=== PATIENT | male | born 1990 | race Caucasian/White ===

== ENCOUNTER 2021-02-22 11:47 | Emergency (ER) | payer OTHER, SELFPAY ==
[2021-02-22 12:10] VITALS: BP 129/87; PULSE 75; RESP 16; TEMP 36.2; O2SAT 99
--- NOTE | 2021-02-22 12:42 | ED.URI ---
HPI - URI/Sore Throat General Chief Complaint: Upper Respiratory Infection Stated Complaint: sore throat/ear pain Time Seen by Provider: 02/22/21 12:42 Source: patient Mode of arrival: ambulatory Limitations: no limitations History of Present Illness HPI Narrative: Hermes Barkley is a 30 yo male with no PMH comes to [facility] with complaints of sore throat and fever has been taking DayQuil and NyQuil -child was seen by bath tester and diagnosed with cold they were both strep and Covid negative Related Data Allergies Allergy/AdvReac Type Severity Reaction Status Date / Time codeine Allergy Unknown Fainting Verified 02/22/21 12:26 Review of Systems Review of Systems: CONSTITUTIONAL: Has fever, chills, sweats. EYES: Denies visual changes, redness, discharge. ENT: Denies rhinorrhea, congestion, has sore throat, otalgia. CARDIOVASCULAR: Denies chest pain, palpitations, edema. RESPIRATORY: Denies dyspnea, wheezing, cough GASTROINTESTINAL: Denies abdominal pain, nausea, vomiting, diarrhea. GENITOURINARY: Denies dysuria, hematuria, abnormal discharge SKIN: Denies rash or itching. NEUROLOGIC: Denies numbness, or focal weakness. PSYCHIATRIC: Denies anxiety or depression. [facility] Family History Family History (System 12/27/19 @ 09:10 by Amber Clark) Other Family history of coronary artery disease Family history of malignant neoplasm Hypertension Social History Social History Alcohol intake: never Comments At time of signature, I agree with nursing past medical, surgical, social and family history. There is no relevant family history pertinent to the presenting complaint. Exam Narrative: GENERAL: This is a well-nourished, well-developed patient, in mild distress. HEAD: normocephalic, atraumatic. EYES: Sclera clear/white. Vision is grossly intact. EARS: External ears normal, auditory canals clear and without drainage, TMs normal without perforation. Hearing grossly intact. NOSE: External nose normal without nasal discharge, nares without redness, no rhinorrhea. THROAT: Mucous membranes moist, posterior pharynx mild erythema NECK: Neck supple, CARDIOVASCULAR: Regular rate and rhythm without murmurs, gallops, or rubs. RESPIRATORY: Clear to auscultation. Breath sounds equal bilaterally. No wheezes, rales, or rhonchi. GASTROINTESTINAL: Abdomen soft, SKIN: warm, intact with no suspicious lesions or rash, good texture and turgor. NEURO: awake, alert, and oriented to person, place and time. There were no obvious focal neurologic abnormalities. Steady gait EXTREMITIES: Normal range of motion. BACK: Nontender without deformity Course Course Emergency Course: Patient comes in with fever, sinus congestion and cough for 3 days and states he has a sore throat; it seen by bath tester negative for flu and Covid Strep negative Patient started on prednisone and cough medication Outpatient Covid order written for Wednesday patient will go ahead and get test done if not feeling better by then Vital Signs Vital signs: Vital Signs Temperature 97.1 F L 02/22/21 12:10 Pulse Rate 75 02/22/21 12:10 Respiratory Rate 16 02/22/21 12:10 Blood Pressure 129/87 02/22/21 12:10 Pulse Oximetry 99 02/22/21 12:10 Temperature 97.1 F L 02/22/21 12:10 Pulse Rate 75 02/22/21 12:10 Respiratory Rate 16 02/22/21 12:10 Blood Pressure 129/87 02/22/21 12:10 Pulse Oximetry 99 02/22/21 12:10 MDM - URI/Sore Throat Differential Diagnosis Differential diagnosis: Likely upper respiratory infection, sinusitis, influenza, pharyngitis and other Lab Data Labs: Strep Screen Presumptive Negative *(Reference Range: Negative)* Critical Care Time Critical Care Time Critical Care Time: No Discharge Plan Discharge Clinical Impression: Upper respiratory infection Qualifiers: URI type: unspecified URI Qu
== END 2021-02-22 13:00 | disposition home or self-care (01) ==
PROVIDERS: Emergency Provider Nurse Practitioner
DX: J06.9 Acute upper respiratory infection, unspecified (principal)
CPT/HCPCS: 87081; 87880; 99213; G0463

== ENCOUNTER → 2021-02-24 08:14 | Outpatient (CLI) | payer OTHER, SELFPAY ==
[2021-02-24 19:11] LABS: SARS-CoV-2 RNA PCR Negative
== END ==
PROVIDERS: PCP Internal Medicine; Visit Provider Nurse Practitioner
DX: J06.9 Acute upper respiratory infection, unspecified (principal); Z20.822 Contact with and (suspected) exposure to COVID-19
CPT/HCPCS: C9803; U0003; U0005

== ENCOUNTER 2023-03-25 16:22 | Emergency (ER) | payer OTHER, SELFPAY ==
[2023-03-25 16:43] VITALS: BP 136/83; PULSE 80; RESP 16; TEMP 37.1; O2SAT 100
--- NOTE | 2023-03-25 17:19 | ED.URI ---
HPI - URI/Sore Throat General Chief Complaint: Upper Respiratory Infection Stated Complaint: exposure to strep, sore throat Time Seen by Provider: 03/25/23 17:00 Source: patient Mode of arrival: ambulatory Limitations: no limitations History of Present Illness HPI Narrative: 32-year-old male presents with complaint of sore throat and headache for 2 days. Afebrile. Denies nausea vomiting. Patient has strep exposure from his children. His is also positive. All systems reviewed and negative except as noted above. Related Data Allergies Allergy/AdvReac Type Severity Reaction Status Date / Time codeine Allergy Unknown Fainting Verified 03/25/23 16:50 Review of Systems Review of Systems: CONSTITUTIONAL: Denies fever, chills, or sweats. EYES: Denies visual changes, redness, or discharge. ENT: Denies rhinorrhea, congestion Reports sore throat. Denies otalgia. CARDIOVASCULAR: Denies chest pain, palpitations, or edema. RESPIRATORY: Denies cough or dyspnea. GASTROINTESTINAL: Denies abdominal pain, nausea, vomiting, or diarrhea. GENITOURINARY: Denies dysuria or hematuria. SKIN: Denies rash or itching. MUSCULOSKELETAL: Denies back pain, joint pain, or myalgia. NEUROLOGIC: reports headache. Denies numbness, or weakness. PSYCHIATRIC: Denies anxiety or depression. All other systems reviewed are negative, except as documented in HPI. PENDING SALE TO [facility] Family History Family History (System 12/27/19 @ 09:10 by Amber Clark) Other Family history of coronary artery disease Family history of malignant neoplasm Hypertension Social History Social History Alcohol intake: never Comments At time of signature, agree with nursing past medical, surgical, social and family history. There is no relevant family history pertinent to the presenting complaint. Exam Narrative: GENERAL: This is a well-nourished, well-developed patient, in no apparent distress. HEAD: normocephalic, atraumatic. EYES: PERRL. Sclera clear/white. Vision is grossly intact. EARS: External ears normal, auditory canals clear and without drainage, TMs normal without perforation. Hearing grossly intact. NOSE: External nose normal with no obvious nasal discharge, nares without redness, no rhinorrhea. THROAT: Mucous membranes moist, erythema to posterior pharynx without swelling or exudates. NECK: Neck supple, non-tender without lymphadenopathy, masses or thyromegaly. CARDIOVASCULAR: Regular rate and rhythm without murmurs, gallops, or rubs. RESPIRATORY: Clear to auscultation. Breath sounds equal bilaterally. No wheezes, rales, or rhonchi. SKIN: warm, Dry, intact with no suspicious lesions or rash, good texture and turgor. NEURO: awake, alert, and oriented to person, place and time. There were no obvious focal neurologic abnormalities. EXTREMITIES: No joint tenderness, effusion, or edema noted. Course Course Level of Care: Express Care Visit Vital Signs Vital signs: Vital Signs Temperature 37.1 C 03/25/23 16:43 Pulse Rate 80 03/25/23 16:43 Respiratory Rate 16 03/25/23 16:43 Blood Pressure 136/83 03/25/23 16:43 Pulse Oximetry 100 03/25/23 16:43 Oxygen Delivery Room Air 03/25/23 16:43 Temperature 37.1 C 03/25/23 16:43 Pulse Rate 80 03/25/23 16:43 Respiratory Rate 16 03/25/23 16:43 Blood Pressure 136/83 03/25/23 16:43 Pulse Oximetry 100 03/25/23 16:43 Oxygen Delivery Room Air 03/25/23 16:43 Reviewed MDM - URI/Sore Throat MDM Narrative Medical decision making narrative: negative rapid strep. Will treat patient with antibiotic due to his symptoms and exposure. Patient is aware of diagnosis, understands and agrees to treatment plan. Anticipatory guidance given. Patient agrees to follow-up as directed and is aware of reasons to seek care at the emergency department. Portions of this record may have been created with voice recognition
== END 2023-03-25 17:12 | disposition home or self-care (01) ==
PROVIDERS: Emergency Provider Nurse Practitioner Family
DX: J02.0 Streptococcal pharyngitis (principal)
CPT/HCPCS: 87081; 87147; 87880; 99213; G0463